=== PATIENT | female | born 1995 | race Caucasian/White ===

== ENCOUNTER 2018-01-24 11:41 | Emergency (ER) | payer OTHER ==
[2018-01-24 12:04] VITALS: BP 113/70
--- NOTE | 2018-01-24 12:14 | UC ---
Substance Abuse HPI - HPI Summary HPI Summary: Pt presents with increased anxiety. She is a senior at [employer]. She tells me that all throughout college she has used drugs - acid, MDMA, marijuana, alcohol, and cocaine. 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 She goes out at least 4-5 days a week with the intent to abuse substances. She had a relationship end in the beginning of November, but says she is not upset about this and that the break up was a good thing for her. The reason for her visit today is because she has noticed her anxiety increasing. This morning she tells me that she woke up and started thinking about school and her life responsibilities and became very anxious. She wants to stop abusing drugs and is seeking help in doing this. She does have a history of anxiety and says that she was on Lexapro sometime in the past. Denies fever, chills, seizures, SOB, chest pain, abdominal pain, n/v/d/c, headache, or dizziness. Denies SI/HI or wanting to harm herself or others. - History Of Current Complaint Chief Complaint: [facility] Stated Complaint: PANIC ATTACK Time Seen by Provider: 01/24/18 12:14 Hx Obtained From: Patient Hx Last Menstrual Period: 01/03/18 Onset Of Abuse Is Stated In: Months States Increased Use Since: 2 months ago Character: Anxious - Allergies/Home Medications Allergies/Adverse Reactions: Allergies Allergy/AdvReac Type Severity Reaction Status Date / Time Penicillins Allergy Hives Verified 01/24/18 12:04 PMH/Surg Hx/FS Hx/Imm Hx Previously Healthy: Yes Psychological History: Anxiety - Surgical History Surgical History: None - Family History Known Family History: Positive: None - Social History Occupation: Student Lives: Dormitory/Roommates Alcohol Use: Daily Alcohol Amount: 5 a day, beer and vodka Substance Use Type: Cocaine, Marijuana, Other Substance Use Comment - Amount & Last Used: Acid Smoking Status (MU): Current Some Day Smoker Review of Systems Constitutional: Negative Skin: Negative Eyes: Negative ENT: Negative Respiratory: Negative Cardiovascular: Negative Gastrointestinal: Negative Musculoskeletal: Negative Neurological: Negative Psychological: Negative All Other Systems Reviewed And Are Negative: Yes Physical Exam - Summary Physical Exam Summary: GENERAL: NAD. WDWN. No pain distress. SKIN: No rashes, sores, ulcers, masses, lesions. No clubbing or cyanosis. HEENT: Head: AT/NC Eyes: PERRLA. EOM intact. Conjunctiva clear without inflammation or discharge. Ears: Hearing grossly normal. TMs intact, no bulging, erythema, or edema. Nose: Nasal mucosa pink and moist. NTTP maxillary and frontal sinus. Throat: Posterior oropharynx without exudates, erythema, or tonsillar enlargement. Uvula midline. NECK: Supple. Nontender. No lymphadenopathy. CHEST: CTAB. No r/r/w. No accessory muscle use. Breathing comfortably and in no distress. CV: RRR. Without m/r/g. Pulses intact. Brisk cap refill. ABDOMEN: Soft. NTTP. No distention or guarding., No organomegaly. No CVA tenderness. Bowel sounds present x4. NEURO: A&Ox3. 3 word recall, remote, recent memory, ability to follow 2-step directions, and attention intact. CN II-XII grossly intact. [id number] are intact. Gait with normal base. Normal speech. No facial drooping. PSYCH: Age appropriate behavior. Triage Information Reviewed: Yes Vital Signs: Initial Vital Signs Temp 98.1 F 01/24/18 11:56 Pulse 88 01/24/18 11:56 Resp 12 01/24/18 11:56 BP 113/70 01/24/18 11:56 Pulse Ox 100 01/24/18 11:56 Substance Abuse Course/Dx - Course Course Of Treatment: I had a long discussion with the pt regarding her anxiety and substance abuse. She wants to see counselor's at [place] for therapy/ treatment. I have provided her with a list of names and numbers to contact at [facility] to set up an appointment for this. For her anxiety, I will try her with a low dose of hydroxyzine BID and have her f/u with psych at [place]. Crisis number provided. - Differential Dx/Diagnosis Clinic Physician Diagnoses: Anxiety. Cocaine abuse. Alcohol abuse. MDMA abuse. Marijuana use Discharge - Discharge Plan Condition: Stable Disposition: HOME Prescriptions: hydrOXYzine HCL TAB* [Atarax 25 MG TAB*] 25 mg PO BID #28 tab Patient Education Materials: Anxiety (ED) Referrals: No Primary Care Phys,NOPCP [Primary Care Provider] - Additional Instructions: If you develop a fever, shortness of breath, chest pain, new or worsening symptoms - please call your PCP or go to the ED. 1) Please call [facility] to schedule a follow up appointment [facility]
== END 2018-01-24 13:10 | disposition home or self-care (01) ==
LOC: UCEAST 11:41
DX: F41.9 Anxiety disorder, unspecified (principal); F14.10 Cocaine abuse, uncomplicated; F19.10 Other psychoactive substance abuse, uncomplicated; F10.10 Alcohol abuse, uncomplicated; F12.90 Cannabis use, unspecified, uncomplicated; Z88.0 Allergy status to penicillin; Z72.0 Tobacco use
CPT/HCPCS: 99212; G0463